=== PATIENT | male | born 1995 | race Caucasian/White ===

== ENCOUNTER 2019-02-01 11:21 | Emergency (ER) | payer OTHER, BC ==
[2019-02-01 11:27] VITALS: BP 141/99
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
[2019-02-01] MEDS ORDERED: APAP/HYDROCODONE 325/5 TAB PO ONE ×2 (11:40→11:55)
[2019-02-01] MEDS ORDERED: HYDR-385 PO (12:09)
== END 2019-02-01 12:36 | disposition home or self-care (01) ==
LOC: ER 11:38
DX: S92.312A Displaced fracture of first metatarsal bone, left foot, initial encounter for closed fracture (principal)
CPT/HCPCS: 99283

== ENCOUNTER → 2019-02-10 | Outpatient (CLI) | payer OTHER, BC ==
[~2019-02-10] MED LIST: HYDR-385 PO
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
== END ==
LOC: CT 01:29
PROVIDERS: ATTEND Orthopaedic Surgery
DX: S92.312D Displaced fracture of first metatarsal bone, left foot, subsequent encounter for fracture with routine healing (principal); S92.255D Nondisplaced fracture of navicular [scaphoid] of left foot, subsequent encounter for fracture with routine healing